=== PATIENT | female | born 1990 | race Caucasian/White ===

== ENCOUNTER → 2021-10-17 10:20 | Outpatient (CLI) | payer BC, SELFPAY ==
--- NOTE | ~2021-10-17 | XR_ITS ---
EXAMINATION: XR UGIAC w small bowel EXAM DATE: 10/17/2021 13:51 INDICATION: Upper Abd Pain. TECHNIQUE: Courier radiograph was acquired. Standard single and double contrast barium upper GI examina tion and small bowel series was performed by radiologist Mario Parada M.D. Spot images of the termina l ileum were acquired. Pulsed dose reduction fluoroscopy was used with fluoroscopic time of 0.5 petey froy. The DAP for this procedure was 9.5 Gycm2. A total of 103 images obtained for the exam. There is no prior study for comparison. FINDINGS: There is no esophageal stricture, diverticulum or mass identified. There is small sliding gastroesophageal hiatal hernia. Reflux was not specifically demonstrated on this study, but patient s tates she does experience reflux. The stomach has a normal appearance without evidence of mass lesion, ulceration or filling defect. T here is normal rugal fold pattern. The duodenum and duodenal sweep are normal in appearance. Ileal and jejunal fold patterns are normal. There is no small bowel wall thickening or mass effect d isplacing small bowel. There are no intraluminal filling defects identified. There is no small danielle l dilation. Terminal ileum is normal in appearance. Contrast reached the colon between 45 minutes a nd one hour following ingestion, normal transit time. IMPRESSION: Small sliding gastroesophageal hiatal hernia. Reviewed, dictated and finalized at location B.
--- NOTE | ~2021-10-17 | US_ITS ---
EXAMINATION: US abdomen complete EXAM DATE: 10/17/2021 10:45 INDICATION: Upper abdominal pain. TECHNIQUE: Multiple grayscale and Doppler images of the complete abdomen were obtained (by a technolo gist who performed the scan) and subsequently reviewed. There is no prior study for comparison. FINDINGS: The abdominal aorta is normal in caliber. Visualized portion IVC is patent. The pancreatic head a nd body are normal in appearance. The pancreatic tail is not visualized. The liver has normal echogenicity and contour. There are no focal liver lesions identified. There is no evidence of intrahepatic biliary duct dilation. Portal venous flow was seen in the hepatopedal , normal direction and has normal Doppler waveform. Common bile duct measures 4 mm, which is normal. The gallbladder wall is normal in thickness, with ex pected amount of distention. No sonographic evidence of pericholecystic fluid. Stone filled but non distended gallbladder, wall echo shadow appearance. Technologist performing exam reports patient did not demonstrate sonographic Petersen's sign. Please note that this sign is less reliable in patients who have received pain medication. Right kidney: There is normal contour and echogenicity. It measures 9.9 x 4.0 x 6.0 centimeters. T here are no focal renal lesions identified. There is no hydronephrosis. Left kidney: There is normal contour and echogenicity. It measures 10.5 x 5.1 x 5.3 centimeters. T here are no focal renal lesions identified. There is no hydronephrosis. The spleen measures 12 centimeters and is morphologically normal. IMPRESSION: 1. Stone filled gallbladder. Reviewed, dictated and finalized at location B.
== END ==
PROVIDERS: Visit Provider Physician Assistant
DX: R10.10 Upper abdominal pain, unspecified (principal); K80.20 Calculus of gallbladder without cholecystitis without obstruction; K44.9 Diaphragmatic hernia without obstruction or gangrene
CPT/HCPCS: 74246; 74248; 76700

== ENCOUNTER 2021-11-19 15:02 | Outpatient (CLI) | payer SELFPAY ==
[2021-11-19 15:40] LABS: Alanine Aminotransferase 15 U/L (4-35); Alkaline Phosphatase 66 U/L (38-126); Amylase 64 U/L (30-110); Aspartate Amino Transferase 20 U/L (14-36); Bilirubin,Total 0.1 mg/dL (0.2-1.3); Lipase 107 U/L (23-300)
== END 2021-11-19 15:03 | disposition home or self-care (01) ==
LOC: ANHSURGERY 15:08
PROVIDERS: PCP Physician Assistant; Visit Provider Surgery
DX: Z01.812 Encounter for preprocedural laboratory examination (principal); K80.20 Calculus of gallbladder without cholecystitis without obstruction
CPT/HCPCS: 36415; 80076; 82150; 83690; 86850; 86900; 86901

== ENCOUNTER 2021-11-22 01:10 | Day surgery (SDC) | payer SELFPAY ==
[2021-11-18 15:01] VITALS: BMI 39.9
--- NOTE | 2021-11-18 15:10 | SUR.PREOP ---
Report to the Outpatient Waiting Room, entrance under the green pavilion located off [facility], at time 1100_ on date 11/22/21 . OR Time: _1pm . - You and your visitor will be asked a series of questions to screen for COVID 19 for your protection. - Only one visitor is allowed at this time. - The patient visitor is requested to leave or wait in car when not with patient. - A mask is required within the hospital. Patients may have clear liquids (water, carbonated beverages, clear teas, apple juice) until 3 hours prior to surgery with a maximum of 20 ounces. - No food from midnight until time of surgery - Infants may have breast milk until 4 hours before surgery, formula 6 hours prior to surgery. - Children will be allowed to drink immediately following surgery. If applicable, please bring a bottle or sippy cup to assist with drinking. Juice, water, soda, and popsicles are readily available. For infants on formula, please bring formula the day of surgery. Pacifiers are allowed. Take the following medications with a SIP of water the morning of surgery: ____n/a/ Medications to discontinue per physician n/a Date to take last dose___n/a Please no make-up, nail lao, hairspray, perfume, deodorant, or body powder the day of surgery. No jewelry (including any body piercings) or valuables the day of surgery, leave them at home. Please take a shower or bath the night before, or the morning of, surgery with an antibacterial soap. Wear comfortable, loose fitting clothing. Children are encouraged to wear pajamas. hibiclens shower am of surgery. - Jewelry must be removed prior to entering the operating room. Rings and piercings that are not removed may be cut off. - The hospital will not accept responsibility for valuables. - Please leave all valuables, including medications, at home the day of surgery. If you are going home after surgery, a licensed front end driver must drive you home. - NO public transportation without another adult. - We recommend that an adult stay with you for 24 hours following discharge. - We also recommend that you do not drive, make important decision, drink alcoholic beverages, or take any drugs that were not prescribed by your health care provider for at least 24 hours after your discharge time. For Pediatric surgeries, we recommend two adults accompany the child home (only one inside the building at this time). Follow any additional instructions given to you from your surgeon. If you or anyone in your household have experienced Covid symptoms in the past week, please notify your surgeon or the nurse liaison at the phone number below for possible testing. Telephone instructions given to _rashad gray and asked if any additional questions and then verbalized understanding. Patient advised to call surgeon office or pre surgery nurse liaison [phone] if any additional questions.
--- NOTE | 2021-11-21 13:11 | WPDANESEPPF ---
Anes - Initial Pre Proc Eval Procedure: Operation Date: 11/22/21 13:00 Proposed Procedures p Laparoscopic Cholecystectomy, Possible Open - Marcell Ann DO Date/Time: 11/21/21 13:11 Surgeon: Marcell Ann DO Pre Op Diagnosis: Symptomatic Cholelithiasis Patient Data Age: 31 Gender: F Height: 1.68 m Weight: 112.27 kg Allergies Allergy/AdvReac Type Severity Reaction Status Date / Time No Known Allergies Allergy Mild Verified 11/22/21 11:37 Home Medications Medication Instructions Recorded Confirmed Type omeprazole 20 mg capsule,delayed 20 mg PO DAILY 11/05/21 11/22/21 History release hydrocodone-acetaminophen 1 tablet PO Q4H PRN #10 tablet 11/22/21 Rx Patient hx anesthesia problems: none Family hx anesthesia problems: none Results Review: All pre-operative results and documents have been reviewed as part of the pre-operative evaluation. [facility] Past Medical History Medical History (Updated 11/21/21 @ 13:11 by Koko Alcocer DO) Depression GERD (gastroesophageal reflux disease) Hiatal hernia Family History Family History Mother Diabetes mellitus Family history of diabetes mellitus in first degree relative Grandparent Hypertension Malignant neoplasm of prostate Family history of malignant neoplasm of cervix Family history of coronary artery disease Other Family history of arthritis Family history of chronic obstructive pulmonary disease Family history of congenital heart disease Family history of malignant neoplasm of breast Social History Social History Smoking status: Never smoker Alcohol intake: current Drinks per week: 4 Alcohol use details: Social alcohol use 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 Gender identity (if verbalized by the patient): Female Sexual Orientation (if Verbalized by the Patient): Straight or Heterosexual Spiritual care concerns: No Anes - Eval Final PreProcedure Day of Procedure 11/21/21 13:11 Patient weight: obese Heart: regular rate and rhythm Lungs: clear to auscultation and normal air movement Airway: Mallampati scale class II Neurological: alert and oriented Last oral intake: >/= 8 hours ASA classification: III Emergent: no Anesthetic plan: proceed Anesthesia type and monitoring: general ETT and standard monitoring Results Review: All pre-operative results and documents have been reviewed as part of the pre-operative evaluation. Informed Consent: The patient's anesthetic plan and its attendant risks and benefits were discussed with the patient/family/POA. Questions were solicited and answers provided to the satisfaction of the patient/family/POA.
[2021-11-22] VITALS (10 sets, daily range): BP systolic 104–138; BP diastolic 63–91; PULSE 49–64; RESP 12–18; TEMP 36.7–36.9; O2SAT 97–100; BMI 40.1
--- NOTE | 2021-11-22 11:44 | WPDHPUPDATE1 ---
History and Physical Update Update Date/Time: 11/22/21 11:44 History and Physical has been reviewed, including an updated exam of the patient. There are NO changes in the patient's condition. Risks, benefits, and alternatives have been discussed and questions answered. Patient agrees to proceed with procedure.
[2021-11-22] MEDS: LACTATED RINGERS 1,000 ML 30 ML IV CONT ×2 (11:53→13:54)
[2021-11-22] MEDS: KETOROLAC 15 MG/ML VIAL (*BKC) IV PUSH (11:55)
[2021-11-22] MEDS: ACETAMINOPHEN 500 MG TABLET 1000 MG PO (11:55)
--- NOTE | 2021-11-22 12:27 | P.PNAN_ITS ---
Anes - Initial Pre Proc Eval Procedure: Operation Date: 11/22/21 13:00 Proposed Procedures p Laparoscopic Cholecystectomy, Possible Open - Marcell Ann DO Date/Time: 11/22/21 12:27 Surgeon: Marcell Ann DO Pre Op Diagnosis: Symptomatic Cholelithiasis Patient Data Age: 31 Gender: F Height: 1.68 m Weight: 112.8 kg Last Vital Signs Temp 36.7 C 11/22/21 12:03 Pulse 59 L 11/22/21 12:03 Resp 18 11/22/21 12:03 BP 114/63 11/22/21 12:03 Pulse Ox 99 11/22/21 12:03 Allergies Allergy/AdvReac Type Severity Reaction Status Date / Time No Known Allergies Allergy Mild Verified 11/22/21 11:37 Home Medications Medication Instructions Recorded Confirmed Type omeprazole 20 mg capsule,delayed 20 mg PO DAILY 11/05/21 11/22/21 History release Patient hx anesthesia problems: post op nausea/vomiting Family hx anesthesia problems: none Results Review: All pre-operative results and documents have been reviewed as part of the pre-operative evaluation. [facility] Past Medical History Medical History (Updated 11/21/21 @ 13:11 by Koko Alcocer DO) Depression GERD (gastroesophageal reflux disease) Hiatal hernia Family History Family History Mother Diabetes mellitus Family history of diabetes mellitus in first degree relative Grandparent Hypertension Malignant neoplasm of prostate Family history of malignant neoplasm of cervix Family history of coronary artery disease Other Family history of arthritis Family history of chronic obstructive pulmonary disease Family history of congenital heart disease Family history of malignant neoplasm of breast Social History Social History Smoking status: Never smoker Alcohol intake: current Drinks per week: 4 Alcohol use details: Social alcohol use Living arrangements: with family 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 Informed Consent: The patient's anesthetic plan and its attendant risks and benefits were discussed with the patient/family/POA. Questions were solicited and answers provided to the satisfaction of the patient/family/POA.
[2021-11-22] MEDS: ceFAZolin 2 GM/D5W 50 ML 2 GM/50 ML BAG IVPB (12:34)
[2021-11-22] MEDS: SCOPOLAMINE 1.5 MG PATCH TRANSDERM (12:35)
[2021-11-22] MEDS: BUPIVACAINE HCL 0.25% PF 30 ML VIAL INFILTRATE (12:58)
--- NOTE | 2021-11-22 13:45 | W.PM.PROC2 ---
Procedure Note - Detailed Date of Procedure 11/22/21 Pre-op Diagnosis Symptomatic Cholelithiasis Post-op Diagnosis Same Procedure Performed Laparoscopic Cholecystectomy Surgeon Marcell Ann, DO Anesthesia General and Local (0.5% bupivacaine) Indications This is a 31-year-old woman who presented with right upper quadrant pain for the past 2 months. She noticed pain after eating fried or fatty foods. She had a gallbladder ultrasound that showed evidence of a stone filled gallbladder. Discussions were the patient about treatment options and decision was made to proceed with laparoscopic cholecystectomy, possible open. Findings Laparoscopic cholecystectomy was performed. The gallbladder did appear filled with multiple gallstones. The gallbladder was partially intrahepatic. The cystic duct appeared to taper the to normal size just beyond the neck of the gallbladder. No other abnormalities were noted. The gallbladder was removed and sent to the lab for pathology. Description of Procedure Procedure as well as risks, benefits, and alternatives were discussed with patient. Written consent was obtained and placed in chart prior to procedure. The patient was brought back to surgical suite. Patient was placed in supine position on operating table. Time-out was done to confirm patient and procedure. Patient was then intubated by the anesthesia department. Abdomen was prepped and draped in sterile fashion using chlorhexidine prep. 0.5% bupivacaine with epinephrine was infiltrated at each site of incision. A 5 millimeter incision was made near the umbilicus, and a 5 millimeter Optiview trocar was advanced through the abdominal layers under direct visualization. Once inside the abdominal cavity, carbon dioxide was insufflated to create a pneumoperitoneum. The camera was inserted and the abdomen was inspected. No immediate abnormalities were identified. The patient was placed in reverse Trendelenburg position and rotated slightly to the left. An 11 millimeter incision was made in the subxiphoid region, and an 11 millimeter trocar was inserted under direct visualization. Two 5 millimeter incisions were made in the right upper quadrant, and two 5 millimeter trocars were inserted under direct visualization. The gallbladder was identified and grasped at the fundus and retracted superiorly. It was then grasped at the infundibulum retracted laterally. Careful dissection around the neck of the gallbladder was performed using blunt dissection with a [place] grasper and hook electrocautery. The cystic duct was identified, and a window was created behind it. The cystic artery was also identified and a window was created behind it. The critical view of safety was identified, visualizing the cystic duct running directly into the neck of the gallbladder, and the cystic artery running directly into the wall of the gallbladder. A 5 millimeter clip film washer was then used to place 2 clips proximally and 1 clip distally on both the cystic duct and cystic artery. They were then both transected using endoscopic scissors. Once safely away from the nikky hepatitis, the gallbladder was dissected free from the liver bed using hook electrocautery. Hemostasis was achieved along the way. The gallbladder was removed completely and then removed through the subxiphoid port. The liver bed was then inspected. Hemostasis appeared adequate, and our clips appeared secure. The area was gently irrigated with sterile saline. No other abnormalities were seen. The patient was flattened out in bed, and 1 final inspection was made around the abdominal cavity. The subxiphoid port was removed, and a Damien Sofía cone was used to approximate the fascia with an 0-Vicryl simple interrupted suture. The remaining ports were then removed under direct visualization, the camera was removed, and the pneumoperitoneum was released. The skin of the incisions was approximated using 4-0 Monocryl subcut
[2021-11-22] MEDS: fentaNYL CITRATE INJ (*CRX) 100 MCG/2 ML VIAL 25 MCG IV PUSH ×4 (14:07→14:52)
[2021-11-22] MEDS: ONDANSETRON INJ 4 MG/2 ML VIAL IV PUSH (14:44)
[2021-11-22] MEDS: diphenhydrAMINE HCl INJ 50 MG/ML VIAL 25 MG IV PUSH (15:38)
[2021-11-22] MEDS: oxyCODONE HCL (*CRX) 5 MG TAB IR PO (16:14)
== END 2021-11-22 16:40 | disposition home or self-care (01) ==
PROVIDERS: PCP Physician Assistant; Visit Provider Surgery
PROC: 0FT44ZZ Resection of Gallbladder, Percutaneous Endoscopic Approach (ICD-10-PCS; CPT 47562; principal; 2021-11-22 13:00)
DX: K80.10 Calculus of gallbladder with chronic cholecystitis without obstruction (principal); F32.9 Major depressive disorder, single episode, unspecified; K21.9 Gastro-esophageal reflux disease without esophagitis; K44.9 Diaphragmatic hernia without obstruction or gangrene; E66.9 Obesity, unspecified; Z68.41 Body mass index [BMI] 40.0-44.9, adult
CPT/HCPCS: 47562; 88304; A9270; J0690; J1100; J1170; J1200; J1885; J2250; J2405; J2704; J2710; J3010; J7030; J7120